=== PATIENT | male | born 1955 | race Two or more races ===

== ENCOUNTER 2023-11-27 13:32 | Inpatient (IN) | payer OTHER, MEDICAID ==
[~2023-11-27] VITALS: Ht 170.2 cm; Wt 85.1 kg
[2023-11-27 14:26] LABS: Basophils # (auto) 0 10 ^3/uL (0-0.2); Basophils % (auto) 0.2 % (0.0-2.0); Eosinophils # (auto) 0 10 ^3/uL (0-0.8); Eosinophils % (auto) 0.2 % (0.0-7.0); Hematocrit 45.1 % (41.0-53.0); Hemoglobin 15.5 g/dL (13.5-17.5); Lymphocytes # (auto) 0.8 10 ^3/uL (0.4-5.4); Mean Corpuscular Hgb Conc. 34.3 g/dL (32.0-36.0); Mean Corpuscular Volume 90.3 fL (80.0-100.0); Monocytes # (auto) 1.2 10 ^3/uL (0-1.3); Monocytes % (auto) 15.5 % (0.0-12.0); Neutrophils # (auto) 5.5 10 ^3/uL (1.6-8.6); Neutrophils % (auto) 73.1 % (37.0-80.0); Nucleated Red Blood Cells % 0.1 %; Platelet Count (auto) 172 10^3/uL (140-450); Red Cell Distribution Width 16.2 % (11.8-14.3); White Blood Cell 7.5 10^3/uL (4.4-10.8)
[2023-11-27] MEDS: SODIUM CHLORIDE 0.9% 500 ML IV ONE (14:28)
[2023-11-27 14:35] LABS: Calcium 9.6 mg/dL (8.7-10.4); Chloride 105 mmol/L (98-107); Potassium 3.7 mmol/L (3.5-5.1); Sodium 136 mmol/L (136-145)
[2023-11-27 14:36] LABS: Anion Gap 5 (5-15); Carbon Dioxide 26 mmol/L (20-30)
[2023-11-27 14:41] LABS: BUN/Creatinine Ratio 12.3 (10.0-20.0); Blood Urea Nitrogen 19 mg/dL (9-23); Glucose 123 mg/dL (74-106); Magnesium 2.2 mg/dL (1.6-2.6)
[2023-11-27 16:24] VITALS: PULSE 75; RESP 18; O2SAT 96
[2023-11-27] MEDS: ONDANSETRON HCL 4 MG/2 ML VIAL IV ONE (16:45)
[2023-11-27 18:12] LABS: Urine Bacteria FEW /hpf (None Seen); Urine Blood Negative /uL (Negative); Urine Clarity Clear (Clear); Urine Color Light-Yellow (Yellow); Urine Protein, UAD TRACE (Negative); Urine Specific Gravity 1.013 (1.001-1.035); Urine Sperm PRESENT /hpf (None Seen); Urine Urobilinogen Normal (Negative); Urine WBC 1 /hpf (0 - 3)
[2023-11-27 18:24] LABS: COVID19 ANTIGEN SOFIA FIA POSITIVE (NEGATIVE)
[2023-11-27] MEDS ORDERED: ONDANSETRON HCL 4 MG/2 ML VIAL IV PRN (23:45)
[2023-11-27] MEDS ORDERED: HYDROcodone-ACET 5/325MG TAB PO PRN (23:45)
[2023-11-27] MEDS ORDERED: HYDROmorphone HCL 2 MG/ML VL/or syr IV PRN (23:45)
[2023-11-27] MEDS ORDERED: MORPHINE SULFATE INJ 2 MG/ml SYRG IV PRN (23:45)
[2023-11-27] MEDS ORDERED: NITROGLYCERIN 0.4 MG SL TAB SL PRN (23:45)
[2023-11-28] MEDS: LACTATED RINGER'S 1,000 ML IV ONE (00:38)
[2023-11-28 04:59] LABS: Basophils # (auto) 0 10 ^3/uL (0-0.2); Basophils % (auto) 0.3 % (0.0-2.0); Eosinophils # (auto) 0 10 ^3/uL (0-0.8); Hematocrit 44.9 % (41.0-53.0); Hemoglobin 15.4 g/dL (13.5-17.5); Lymphocytes # (auto) 1.6 10 ^3/uL (0.4-5.4); Lymphocytes % (auto) 18.9 % (10.0-50.0); Mean Corpuscular Hgb Conc. 34.3 g/dL (32.0-36.0); Mean Corpuscular Volume 90.3 fL (80.0-100.0); Monocytes # (auto) 1.4 10 ^3/uL (0-1.3); Monocytes % (auto) 16.5 % (0.0-12.0); Neutrophils # (auto) 5.5 10 ^3/uL (1.6-8.6); Neutrophils % (auto) 64.3 % (37.0-80.0); Nucleated Red Blood Cells % 0.1 %; Platelet Count (auto) 151 10^3/uL (140-450); Red Blood Cells 4.97 10^6/uL (4.5-5.90); Red Cell Distribution Width 16.3 % (11.8-14.3); White Blood Cell 8.5 10^3/uL (4.4-10.8)
[2023-11-28 05:22] LABS: Alanine Aminotransferase 17 U/L (7-40); Albumin 3.8 g/dL (3.2-4.8); Alkaline Phosphatase 62 U/L (46-116); Anion Gap 6 (5-15); Aspartate Aminotransferase 29 U/L (13-40); BUN/Creatinine Ratio 12.9 (10.0-20.0); Bilirubin, Total 0.6 mg/dL (0.2-1.0); Blood Urea Nitrogen 15 mg/dL (9-23); Calcium 8.8 mg/dL (8.7-10.4); Carbon Dioxide 26 mmol/L (20-30); Chloride 109 mmol/L (98-107); Glucose 84 mg/dL (74-106); Potassium 3.6 mmol/L (3.5-5.1); Sodium 141 mmol/L (136-145); Total Protein 6.9 g/dL (5.7-8.2)
[2023-11-28] MEDS: SODIUM CHLOR 0.9% PF (SALINE LOCK) 10ML VIAL/SYR IV SCH (06:06)
[2023-11-28 07:45] VITALS: PULSE 77; RESP 16; O2SAT 96
[2023-11-28] MEDS: POTASSIUM CHL 20 Meq TABLET PO ONE (08:48)
[2023-11-28] MEDS: PANTOPRAZOLE 40 MG/10 ML VIAL INJ IV SCH (10:05)
[2023-11-28] MEDS: ENOXAPARIN SOD 40 MG/0.4 ML SYRINGE SC SCH (10:05)
[2023-11-28] MEDS: GABAPENTIN 300 MG CAP PO ONE (11:01)
[2023-11-28] MEDS: CLOPIDOGREL BISULFATE 75 MG TAB PO SCH (11:02)
[2023-11-28] MEDS: LISINOPRIL 5 MG TAB PO ONE (11:02)
[2023-11-28] MEDS: CHOLECALCIFEROL (VITD3) 1,000UNIT=25mCg TAB PO ONE (13:21)
[2023-11-28] MEDS: MULTIPLE VITAMIN TAB PO ONE (13:21)
[2023-11-28] MEDS: ZINC SULFATE 220mg CAP or TAB PO ONE (13:22)
[2023-11-28] MEDS: AZITHROMYCIN 500MG/ 250ML 250 ML IV ONE (13:22)
[2023-11-28] MEDS: DOCUSATE SOD 100 MG CAP PO PRN (15:53)
[2023-11-28] MEDS: ACETAMINOPHEN 325 MG TAB PO PRN (16:59)
[2023-11-28 19:30] VITALS: PULSE 81; RESP 16; O2SAT 91
[2023-11-28] MEDS: ASCORBIC ACID 500 MG TAB PO SCH (23:21)
[2023-11-29 00:31] VITALS: PULSE 81; RESP 16; O2SAT 91; O2SAT 96
[2023-11-29] MEDS: hydrALAZINE HCL 20 MG/ML VL IV PRN (03:19)
[2023-11-29 06:46] LABS: Basophils # (auto) 0 10 ^3/uL (0-0.2); Basophils % (auto) 0.1 % (0.0-2.0); Eosinophils # (auto) 0 10 ^3/uL (0-0.8); Eosinophils % (auto) 0.6 % (0.0-7.0); Hematocrit 47.4 % (41.0-53.0); Hemoglobin 16.1 g/dL (13.5-17.5); Lymphocytes # (auto) 1.6 10 ^3/uL (0.4-5.4); Lymphocytes % (auto) 20.5 % (10.0-50.0); Mean Corpuscular Hemoglobin 30.8 pg (28.0-32.0); Mean Corpuscular Hgb Conc. 34.1 g/dL (32.0-36.0); Mean Corpuscular Volume 90.3 fL (80.0-100.0); Monocytes # (auto) 1.2 10 ^3/uL (0-1.3); Monocytes % (auto) 15.1 % (0.0-12.0); Neutrophils % (auto) 63.7 % (37.0-80.0); Platelet Count (auto) 153 10^3/uL (140-450); Red Blood Cells 5.25 10^6/uL (4.5-5.90); White Blood Cell 7.8 10^3/uL (4.4-10.8)
[2023-11-29 06:53] LABS: Alanine Aminotransferase 22 U/L (7-40); Albumin 3.7 g/dL (3.2-4.8); Alkaline Phosphatase 64 U/L (46-116); Anion Gap 4 (5-15); Aspartate Aminotransferase 28 U/L (13-40); BUN/Creatinine Ratio 12.2 (10.0-20.0); Bilirubin, Total 0.6 mg/dL (0.2-1.0); Blood Urea Nitrogen 14 mg/dL (9-23); Calcium 9.6 mg/dL (8.7-10.4); Carbon Dioxide 28 mmol/L (20-30); Chloride 107 mmol/L (98-107); Glucose 171 mg/dL (74-106); Sodium 139 mmol/L (136-145)
[2023-11-29 07:25] VITALS: PULSE 76; RESP 12; O2SAT 96
[2023-11-29] MEDS ORDERED: BACL10TA PO (09:13)
[2023-11-29] MEDS ORDERED: DEXTROSE (50%) 50ML SYRG IV PRN (09:45)
[2023-11-29] MEDS: MULTIPLE VITAMIN TAB PO SCH (10:15)
[2023-11-29] MEDS: ZINC SULFATE 220mg CAP or TAB PO SCH (10:15)
[2023-11-29] MEDS: GABAPENTIN 300 MG CAP PO SCH (10:16)
[2023-11-29] MEDS: LISINOPRIL 5 MG TAB PO SCH (10:16)
[2023-11-29] MEDS: CHOLECALCIFEROL (VITD3) 1,000UNIT=25mCg TAB PO SCH (10:16)
[2023-11-29] MEDS: AZITHROMYCIN 500MG/ 250ML 250 ML IV SCH (10:17)
[2023-11-29] MEDS: ACCU-CHEK COMFORT CURVE STRIP VI SCH (11:03)
[2023-11-29] MEDS: InsuLIN REG 1unit/0.01ml Soln (100units/ml) SC SCH (11:37)
[2023-11-29] MEDS: BACLOFEN 10 MG TAB PO SCH (13:54)
[2023-11-29 16:24] LABS: Creatinine, Urine 34.77 mg/dL (30.0-125.0)
[2023-11-29 19:40] VITALS: O2SAT 96
[2023-11-29 21:23] VITALS: BP 134/75; PULSE 84; RESP 18; TEMP 99.3; O2SAT 95
[2023-11-29 21:37] VITALS: BP 134/75; PULSE 84; RESP 17; TEMP 99.5; O2SAT 95
[2023-11-30] VITALS (8 sets, daily range): BP systolic 101–152; BP diastolic 56–75; PULSE 74–80; RESP 16–19; TEMP 97.8–98.4; O2SAT 94–99
[2023-11-30 07:44] LABS: Alanine Aminotransferase 22 U/L (7-40); Albumin 3.4 g/dL (3.2-4.8); Alkaline Phosphatase 62 U/L (46-116); Anion Gap 6 (5-15); Aspartate Aminotransferase 23 U/L (13-40); BUN/Creatinine Ratio 12.8 (10.0-20.0); Bilirubin, Total 0.6 mg/dL (0.2-1.0); Blood Urea Nitrogen 15 mg/dL (9-23); Calcium 9.5 mg/dL (8.7-10.4); Carbon Dioxide 26 mmol/L (20-30); Chloride 106 mmol/L (98-107); Glucose 193 mg/dL (74-106); Potassium 3.7 mmol/L (3.5-5.1); Sodium 138 mmol/L (136-145)
[2023-11-30 07:45] LABS: Total Protein 6.6 g/dL (5.7-8.2)
[2023-11-30 07:51] LABS: Basophils # (auto) 0 10 ^3/uL (0-0.2); Basophils % (auto) 0.1 % (0.0-2.0); Eosinophils # (auto) 0.1 10 ^3/uL (0-0.8); Eosinophils % (auto) 0.9 % (0.0-7.0); Hematocrit 45.2 % (41.0-53.0); Hemoglobin 15.5 g/dL (13.5-17.5); Lymphocytes # (auto) 1.7 10 ^3/uL (0.4-5.4); Lymphocytes % (auto) 27.6 % (10.0-50.0); Mean Corpuscular Hgb Conc. 34.4 g/dL (32.0-36.0); Mean Corpuscular Volume 90.3 fL (80.0-100.0); Monocytes # (auto) 0.8 10 ^3/uL (0-1.3); Monocytes % (auto) 13.4 % (0.0-12.0); Neutrophils # (auto) 3.6 10 ^3/uL (1.6-8.6); Nucleated Red Blood Cells % 0.2 %; Platelet Count (auto) 167 10^3/uL (140-450); Red Blood Cells 5.01 10^6/uL (4.5-5.90); Red Cell Distribution Width 16.1 % (11.8-14.3); White Blood Cell 6.3 10^3/uL (4.4-10.8)
[2023-11-30] MEDS ORDERED: LISI2.5T47 PO (18:17)
[2023-11-30] MEDS ORDERED: CLOP75TA70 PO (18:17)
[2023-11-30] MEDS ORDERED: MIRA25TA4 PO (18:17)
[2023-11-30] MEDS ORDERED: RIVA1CAP3 PO (18:17)
[2023-11-30] MEDS ORDERED: SIMV20TA20 PO (18:17)
[2023-11-30] MEDS ORDERED: EMPA1TAB PO (18:17)
[2023-11-30] MEDS ORDERED: GLAT40IN SC (18:17)
[2023-11-30] MEDS ORDERED: CHOL20007 PO (18:17)
[2023-11-30] MEDS ORDERED: MEMA1TAB5 PO (18:17)
[2023-11-30] MEDS ORDERED: GABA-1250 PO (18:17)
[2023-12-01] VITALS (8 sets, daily range): BP systolic 125–178; BP diastolic 59–98; PULSE 70–86; RESP 16–18; TEMP 97.6–98.5; O2SAT 94–97
[2023-12-01 08:15] LABS: Basophils # (auto) 0 10 ^3/uL (0-0.2); Basophils % (auto) 0.2 % (0.0-2.0); Eosinophils # (auto) 0.1 10 ^3/uL (0-0.8); Eosinophils % (auto) 1.6 % (0.0-7.0); Lymphocytes # (auto) 1.5 10 ^3/uL (0.4-5.4); Lymphocytes % (auto) 27.3 % (10.0-50.0); Mean Corpuscular Hemoglobin 30.9 pg (28.0-32.0); Mean Corpuscular Hgb Conc. 34.1 g/dL (32.0-36.0); Mean Corpuscular Volume 90.7 fL (80.0-100.0); Monocytes # (auto) 0.7 10 ^3/uL (0-1.3); Monocytes % (auto) 13.3 % (0.0-12.0); Neutrophils # (auto) 3.2 10 ^3/uL (1.6-8.6); Neutrophils % (auto) 57.6 % (37.0-80.0); Nucleated Red Blood Cells % 0.1 %; Platelet Count (auto) 156 10^3/uL (140-450); Red Blood Cells 5.18 10^6/uL (4.5-5.90); Red Cell Distribution Width 15.9 % (11.8-14.3); White Blood Cell 5.5 10^3/uL (4.4-10.8)
[2023-12-01 08:35] LABS: Alanine Aminotransferase 27 U/L (7-40); Albumin 3.4 g/dL (3.2-4.8); Alkaline Phosphatase 66 U/L (46-116); Anion Gap 5 (5-15); Aspartate Aminotransferase 22 U/L (13-40); BUN/Creatinine Ratio 12.3 (10.0-20.0); Bilirubin, Total 0.4 mg/dL (0.2-1.0); Blood Urea Nitrogen 13 mg/dL (9-23); Calcium 9.9 mg/dL (8.7-10.4); Carbon Dioxide 25 mmol/L (20-30); Chloride 106 mmol/L (98-107); Glucose 266 mg/dL (74-106); Potassium 3.7 mmol/L (3.5-5.1); Sodium 136 mmol/L (136-145); Total Protein 6.6 g/dL (5.7-8.2)
[2023-12-01 10:17] LABS: Hepatitis B Surface Antigen Negative (Negative)
[2023-12-01 10:39] LABS: Hepatitis C Antibody Negative (Negative)
[2023-12-02 01:00] VITALS: BP 136/62; PULSE 67; RESP 14; TEMP 98; O2SAT 95
[2023-12-02 05:00] VITALS: BP 110/64; PULSE 65; RESP 18; TEMP 98; O2SAT 97
[2023-12-02 05:54] LABS: Basophils # (auto) 0 10 ^3/uL (0-0.2); Basophils % (auto) 0.3 % (0.0-2.0); Eosinophils # (auto) 0.1 10 ^3/uL (0-0.8); Eosinophils % (auto) 1.6 % (0.0-7.0); Hematocrit 43.1 % (41.0-53.0); Hemoglobin 14.9 g/dL (13.5-17.5); Lymphocytes # (auto) 2.1 10 ^3/uL (0.4-5.4); Lymphocytes % (auto) 31.8 % (10.0-50.0); Mean Corpuscular Hemoglobin 31.2 pg (28.0-32.0); Mean Corpuscular Hgb Conc. 34.6 g/dL (32.0-36.0); Mean Corpuscular Volume 90.2 fL (80.0-100.0); Monocytes # (auto) 0.9 10 ^3/uL (0-1.3); Monocytes % (auto) 14.1 % (0.0-12.0); Neutrophils # (auto) 3.4 10 ^3/uL (1.6-8.6); Neutrophils % (auto) 52.2 % (37.0-80.0); Nucleated Red Blood Cells % 0.3 %; Platelet Count (auto) 159 10^3/uL (140-450); Red Blood Cells 4.78 10^6/uL (4.5-5.90); Red Cell Distribution Width 15.7 % (11.8-14.3); White Blood Cell 6.5 10^3/uL (4.4-10.8)
[2023-12-02 06:08] LABS: Alanine Aminotransferase 30 U/L (7-40); Albumin 3.4 g/dL (3.2-4.8); Alkaline Phosphatase 65 U/L (46-116); Anion Gap 5 (5-15); Aspartate Aminotransferase 29 U/L (13-40); BUN/Creatinine Ratio 11.9 (10.0-20.0); Bilirubin, Total 0.4 mg/dL (0.2-1.0); Blood Urea Nitrogen 13 mg/dL (9-23); Calcium 9.3 mg/dL (8.7-10.4); Carbon Dioxide 24 mmol/L (20-30); Chloride 107 mmol/L (98-107); Glucose 212 mg/dL (74-106); Potassium 3.8 mmol/L (3.5-5.1); Sodium 136 mmol/L (136-145); Total Protein 6.3 g/dL (5.7-8.2)
[2023-12-02 08:00] VITALS: BP 181/82; PULSE 78; RESP 17; TEMP 98.3; O2SAT 96
[2023-12-02 08:15] VITALS: PULSE 78; RESP 16; O2SAT 96
[2023-12-02] MEDS ORDERED: ZINC220C10 PO (08:33)
[2023-12-02] MEDS ORDERED: ASCO500C49 PO (08:33)
[2023-12-02] MEDS ORDERED: CHOL500046 PO (08:33)
[2023-12-02 12:00] VITALS: BP 126/66; PULSE 89; RESP 17; TEMP 98.8; O2SAT 97
[2023-12-02 14:51] VITALS: BP 126/66; PULSE 89; RESP 16; TEMP 37.1; O2SAT 97
== END 2023-12-02 16:30 | disposition home health service (06) | DRG 177 ==
LOC: ER 13:32 → TELE 23:38 → TELE-CENTR 11-29 21:22 → CENTRAL 11-30 01:41
PROVIDERS: ADMIT Internal Medicine; ATTEND Family Medicine
PROC: 05HB33Z Insertion of Infusion Device into Right Basilic Vein, Percutaneous Approach (ICD-10-PCS; principal; 2023-12-01)
PROC: B54MZZA Ultrasonography of Right Upper Extremity Veins, Guidance (ICD-10-PCS; 2023-12-01)
DX: U07.1 COVID-19 (principal); G93.41 Metabolic encephalopathy; J12.82 Pneumonia due to coronavirus disease 2019; I21.A1 Myocardial infarction type 2; N17.9 Acute kidney failure, unspecified; I69.354 Hemiplegia and hemiparesis following cerebral infarction affecting left non-dominant side; E11.42 Type 2 diabetes mellitus with diabetic polyneuropathy; E11.21 Type 2 diabetes mellitus with diabetic nephropathy; G90.8 Other disorders of autonomic nervous system; I10 Essential (primary) hypertension; E78.00 Pure hypercholesterolemia, unspecified; F03.C0 Unspecified dementia, severe, without behavioral disturbance, psychotic disturbance, mood disturbance, and anxiety; Z88.0 Allergy status to penicillin; Z90.49 Acquired absence of other specified parts of digestive tract; Z79.4 Long term (current) use of insulin
CPT/HCPCS: 36415; 70450; 71045; 76775; 80048; 80053; 81001; 82570; 82962; 83036; 83735; 84300; 84484; 85025; 86803; 87086; 87340; 87426; 93005; 93306; 96361; 96374; 97110; 97163; G0378; J1815; J2405; J2470